=== PATIENT | female | born 1985 | race African-American/Black ===

== ENCOUNTER 2016-04-27 19:53 | Inpatient (IN) | payer BC ==
[~2016-04-27] VITALS: Ht 175.3 cm; Wt 131.5 kg
--- NOTE | ~2016-04-27 | S ---
[facility] [place] [address] SURGICAL PATH RPT PROCEDURE Name: JOSE VILCHIS Y Room #: 401-I [facility] IN M.R.#: [id number] Admission: 04/27/16 Date of : 83 Discharge: 04/30/16 Report #: [id number] Path Case #: [id number] PATHOLOGY REPORT COLLECTION DATE: 04/29/2016 RECEIVED DATE: 04/30/2016 SUBMITTING PHYS: Dr. Apolinar Zhang OTHER PHYS: Dr. Danielle Caballero SPECIMEN(S) RECEIVED: A.Gallbladder * * * * * * * * * * * * FINAL DIAGNOSIS: "Gallbladder", cholecystectomy: - Acute and chronic cholecystitis. - Cholelithiasis. - Lymph node with hyperplasia. (CLW:tracey; d/t: 05/01/2016) PATHOLOGIST: Savanna Caldera M.D. REPORT ELECTRONICALLY SIGNED BY: Savanna Caldera M.D. DATE/TIME: 05/01/2016 17:16 * * * * * * * * * * * * GROSS PATHOLOGY: Received in formalin labeled "Jose Vilchis and gallbladder," is a 10.4 x 3.3 x 1.3 cm, previously opened gallbladder with green-wilkins and wrinkled serosal surfaces. The gallbladder was previously opened to reveal light green and granular mucosa and an average wall thickness of 0.2 cm. Calculi are present and no masses are noted grossly. A 0.8 cm in greatest dimension pink-wilkins lymph node is present near the cystic duct. Director Zone sections from the body and fundus are submitted along with the proximal margin in cassette A1. (TTL; 04/30/2016) CLINICAL HISTORY: Acute cholecystitis and cholelithiasis INITIAL CPT CODE(S): A; 45849 Professional services performed by [facility] at [facility] [address] , [place] [address] [facility] [address] [place] [address] SURGICAL PATH RPT PROCEDURE Name: JOSE VILCHIS Gilbert Room #: 401-I [facility] IN M.R.#: [id number] Admission: 04/27/16 Date of : 83 Discharge: 04/30/16 Report #: [id number] Path Case #: [id number] Technical services performed by [facility] at [address] [place] [address], [place] [address]. [place] [address] PHONE: [phone] DIRECTOR: Yoan Prabhakar M.D. * * * END OF REPORT * * *
--- NOTE | ~2016-04-27 | H ---
[facility] [place] [address] [address] [place] [address] HISTORY AND PHYSICAL Name: JOSE VILCHIS Room #: 401-I ADM IN [facility].#: [id number] Admission: 04/27/16 Attend Phys: Danielle Caballero MD Discharge: Date of : 83 Report #: [id number] THIS REPORT FOR: //name// CC: FAM physician/PCP Danielle Caballero DATE OF SERVICE: 04/27/2016 ATTENDING PHYSICIAN: Danielle Caballero MD PRIMARY CARE PHYSICIAN: ____ at [place]. CHIEF COMPLAINT: Right upper abdominal pain and chest pain, nausea, vomiting. HISTORY OF PRESENT ILLNESS: The patient is a 30-year-old female who states she started having some right upper quadrant abdominal pain 2 nights ____. She woke up the next morning and started having nausea and vomiting, she vomited throughout most of the day. She denies seeing any blood in her emesis. She thinks she was having fevers because she was having chills and sweats. The pain does radiate up into the part of her chest. It is not necessarily worse with deep breathing. She has had a recent cough and sinus congestion and diagnosed with a sinusitis infection by her PCP who started her Bactrim about 2 days ago. She was concerned that maybe she was reacting to her antibiotic, therefore, she came into the ER to be evaluated. She is noted to have significant cholelithiasis. She has received some pain and nausea medication and her symptoms are controlled at this time. PAST MEDICAL HISTORY: GERD, asthma. PAST SURGICAL HISTORY: D and C. ALLERGIES: CIPRO causes a rash, NEXIUM caused vomiting. HOME MEDICATIONS: Albuterol inhaler p.r.n., ibuprofen p.r.n., [place] 5/325 one q. 4 h. p.r.n., Symbicort 80 one puff b.i.d., Nasonex 2 sprays daily, Zofran p.r.n., and Prilosec 40 mg daily. SOCIAL HISTORY: The patient lives alone. She drinks alcohol very rarely. Denies any drug use. She is an ex-smoker, having quit about 6 months ago after smoking for about 10 years. FAMILY HISTORY: Both her parents are alive and health, her sister did not of CHF. REVIEW OF SYSTEMS: Twelve point review of systems as reviewed with the patient, otherwise negative unless stated in the HPI. [address] [address] HISTORY AND PHYSICAL Name: JOSE VILCHIS Room #: 401-I [facility] IN [facility]#: [id number] Admission: 04/27/16 Attend Phys: Danielle Caballero MD Discharge: Date of : 83 Report #: [id number] PHYSICAL EXAMINATION: GENERAL: The patient is an alert, obese female in no acute distress. VITAL SIGNS: Temperature is 36.8, heart rate 77, respirations 18, blood pressure is 161/121, oxygen 100% on room air. HEENT: PERRLA. Sclerae is nonicteric. Oral mucosa is pink and moist. NECK: Supple, no JVD noted. CARDIOVASCULAR: Normal S1, S2. No murmurs, rubs or gallops. RESPIRATORY: Breath sounds are clear bilaterally. No wheezing or rhonchi. Breathing is nonlabored. ABDOMEN: Obese, but soft. She does have significant tenderness in the right upper quadrant to palpation with positive Hurd sign. Bowel sounds are positive. VASCULAR: No edema noted. Pedal pulses are 2+. NEUROLOGIC: The patient is alert and oriented x 3. Speech is clear. She is moving all extremities equally. No focal neuro deficits noted. LABORATORY DATA AND DIAGNOSTICS: WBC is 17.5, hemoglobin 13.2, platelets 285. Sodium 139, potassium 3.5, BUN 11, creatinine 1.0. Glucose is 92. LFTs are within normal limits. Troponins negative. BNP 137, lipase 280. test is negative. Abdominal x-ray showed a nonspecific bowel gas pattern. Chest x-ray showed no acute process. Ultrasound of the abdomen showed cholelithiasis, the gallbladder was filled with stones and there was a scvw-fidj-ymbzep sign, there was no bile duct dilatation. ASSESSMENT AND PLAN: 1. Acute cholecystitis. She will likely need her gallbladder removed. Surgery has consulted. We will keep her n.p.o., continue with pain and nausea control. Continue antibiotics. 2. Asthma. This is stable, add breathing treatments p.r.n. No signs of acute exacerbation. 3. Hypertension. She is not on any current medications. This may have been pain induced. Her blood pressure is now down to 140/85. We will continue to follow. 4. Deep venous thrombosis prophylaxis, placed sequential compression devices. 5. Obesity. We will continue to follow the patient closely throughout the hospitalization and make changes based on clinical status. <ELECTRONICALLY SIGNED> By: JUSTIN Jasso 04/29/16 0553 0541 0616 JUSTIN Jasso /nt
--- NOTE | ~2016-04-27 | O ---
[facility] [place] [address] OPERATIVE REPORT Name: JOSE VILCHIS Room #: 401-I [facility] IN [facility].#: [id number] Admission: 04/27/16 Attend Phys: Danielle Caballero MD Discharge: 04/30/16 Date of : 83 Report #: [id number] THIS REPORT FOR: //name// CC: JANETTE physician/PCP Danielle Caballero DATE OF SERVICE: 04/29/2016 PREOPERATIVE DIAGNOSIS: Acute cholecystitis with cholelithiasis. POSTOPERATIVE DIAGNOSIS: Acute cholecystitis with cholelithiasis. OPERATIVE PROCEDURE: Laparoscopic cholecystectomy with operative cholangiogram. SURGEON: Apolinar Zhang M.D. DISCOVERY GUIDE: BENJA Vaz. INDICATIONS: A 30-year-old lady with 48 hours of abdominal pain, localized to right upper quadrant associated with an ultrasound positive for cholelithiasis. Liver function test within normal limits. DESCRIPTION OF PROCEDURE: The patient had been on antibiotic therapy. She was brought to the operating room suite and had satisfactory induction of general endotracheal anesthesia. The patient's entire abdomen was prepped and draped in the usual sterile procedure with DuraPrep solution. Draping was completed, an appropriate timeout was then performed. 0.5% plain Naropin was utilized at all trocar sites. A vertical supraumbilical incision was carried down to the fascia. The fascia grasped and small incision made. The 5 mm OptiView port was utilized to gain access to the peritoneal cavity under direct vision. Pneumoperitoneum was established. An upper midline 5 mm trocar port was then placed under direct vision. After this, the camera was changed to the superior mid epigastric position, and the 12 mm trocar port with the balloon was also inserted under direct vision, the balloon was inflated. A 10/30 camera was then utilized, and additional two 5 mm trocar ports were placed laterally. The gallbladder was grasped. There were adhesions to the inferior aspect of the gallbladder. These were taken down with sharp dissection, blunt dissection, as well as the Sonicision. The gallbladder was somewhat edematous. It was grasped and retracted cephalad, laterally. A cystic duct triangle was clearly delineated, and photograph was taken of the cystic duct triangle. The cystic duct was milked in a retrograde manner. A clip was placed over the gallbladder. A cystotomy was performed. A taut catheter was introduced and clipped in place. An intraoperative cholangiogram demonstrated free flow of contrast into the duodenum. No filling defects were noted. The taut catheter was then removed. The cystic duct was triply ligated and divided with the Sonicision. The cystic artery was identified, doubly clipped proximally, and divided with [facility] [address] [place] [address] OPERATIVE REPORT Name: JOSE VILCHIS Room #: 401-I [facility] IN ..#: [id number] Admission: 04/27/16 Attend Phys: Danielle Caballero MD Discharge: 04/30/16 Date of : 83 Report #: [id number] Sonicision. The gallbladder was dissected from the fossa without difficulty. It was placed into an Endobag and removed from the peritoneal cavity. It was opened on a back shelf revealing multiple mixed stones. Attention was turned back to peritoneal cavity, copious irrigation and evacuation of all irrigating contents was accomplished. Jorge was placed in the gallbladder fossa. No drains were placed. An 0 PDS suture was placed under direct vision in a gasjcd-jh-owmmj fashion at the umbilical port site. An additional single suture of 0 PDS was also placed. A final inspection was completed. Hemostasis was complete. No other intra-abdominal pathology was noted. The 5 mm trocars were then removed under direct vision. The pneumoperitoneum was deflated. The 0 PDS sutures were ligated in place at the level of the supraumbilical port site. Skin margins were approximated with subcuticular 4-0 Monocryl. The estimated blood loss was less than 25 mL. The patient tolerated the procedure well, and she returned to the recovery room in stable and satisfactory condition. Dermabond was utilized to further secure the port sites. <ELECTRONICALLY SIGNED> By: Apolinar Zhang MD, FACS 05/04/16 1548 1447 1731 Apolinar Zhang MD, FACS /nt
--- NOTE | ~2016-04-27 | HC ---
[facility] [place] [address] CONSULTATION Name: JOSE VILCHIS Room #: 401-I [facility] IN ..#: [id number] Admission: 04/27/16 Attend Phys: Danielle Caballero MD Discharge: 04/30/16 Date of : 83 Report #: [id number] THIS REPORT FOR: //name// CC: JANETTE physician/PCP Danielle Caballero DATE OF SERVICE: 04/28/2016 HISTORY OF PRESENT ILLNESS: I have been asked to evaluate this 30-year-old lady who has presented to the Emergency Room with chief complaint of right upper quadrant pain. The right upper quadrant pain has begun approximately 2 nights ago. The patient's pain continued throughout the nighttime. She started having nausea and vomiting. She vomited throughout most of the day, was unable to go to work on Saturday. She has presented to the Emergency Department and was found to have cholelithiasis and gallbladder disease consistent with possible early cholecystitis. Her primary care physician started her on some Bactrim 2 days ago for sinusitis, but she is noted to have worsening right upper quadrant pain. PAST MEDICAL HISTORY: Consistent with GERD and asthma. PAST SURGICAL HISTORY: D and C only. ALLERGIES: CIPRO, NEXIUM. MEDICATIONS: Albuterol, Zearing, Symbicort, Nasonex, Prilosec. 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 Drinks alcohol only socially. Denies utilizing drugs. She has quit smoking approximately 6 months ago, has a 54-jhty-thdy history of cigarette smoking. FAMILY HISTORY: Parents are living. REVIEW OF SYSTEMS: A 10-point review of systems essentially noncontributory except for a recent onset of gastrointestinal disease. PHYSICAL EXAMINATION: GENERAL: Demonstrates a patient who is alert, cooperative. VITAL SIGNS: Afebrile, vital signs within normal limits. Generally, she is an obese, large lady, approximately 300 pounds. HEENT: Pupils are equal, round, react to light. Scleral icterus is not noted. NECK: Supple, no adenopathy. CARDIOVASCULAR: Regular rate and rhythm. LUNGS: Clear at the bases bilaterally. ABDOMEN: Obese, mild tenderness in the right upper quadrant. No guarding or rebound. No other masses are present. [address] [address] CONSULTATION Name: JOSE VILCHIS Room #: 401-I [facility] IN [facility].#: [id number] Admission: 04/27/16 Attend Phys: Danielle Caballero MD Discharge: 04/30/16 Date of : 83 Report #: [id number] NEUROLOGIC: She is oriented x 3 with bilateral motor symmetry. LABORATORY DATA: Demonstrates white blood cell count 17,000, hemoglobin 13.2. Liver function tests are within normal limits. Lipase is within normal. test is negative. Ultrasound demonstrates cholelithiasis filled with stones. I would recommend proceeding with IV antibiotics. PLAN: Laparoscopic cholecystectomy with cholangiogram in the a.m. Thank you for allowing us to participate in her care. <ELECTRONICALLY SIGNED> By: Apolinar Zhang MD, FACS 05/07/16 0941 1602 1839 Apolinar Zhang MD, FACS /nt
--- NOTE | ~2016-04-27 | EKG ---
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
[~2016-04-27 19:53] MED LIST: ACCUNEB SO1.25 MG/1; ADVAIR 250-501 EACH IH; ALBUTEROL2.5 MG/0.5 INH; AUGMENTIN 875875 M1 PO; AZITHROMYCIN 2250 MG PO; BACTRIM DS TAB1 EACH PO; CHERACOL COUGH120 ML PO; DIFLUCAN150 MG PO; DIFLUCAN200 MG PO; FLAGYL500 MG PO; FLONASE 0.05%50 MCG NS; IBUPROFEN 600600 M1 PO; LORATIDINE 10 M10 M1 PO; LORTAB 5 MG/5001 TAB PO; MEDROLDOSEPACK PO; NASONEX17 GM NASAL; NEXIUM40 MG PO; ONDANSETRON HCL4 M2 PO; PHENERGAN 25 MG25 M1 PO; POTASSIUM20 PO; PREDNISONE 20 M20 MG PO; PRILOSEC40 MG PO; PROAIR HFA8.5 GM IH; SYMBICORT80 MCG/4.1 INH; VENTOLIN HFA 1818 GM INH; ZANTAC 150MG T150 M1 PO; ZOFRAN4 MG PO; ZPAK PO
[2016-04-27] MEDS ORDERED: ALBUTEROL2.5 MG/3 M INH (20:26)
[2016-04-27 21:00] LABS: ABSOLUTE NEUTROPHILS 12.5 thou/uL (1.4-8.2); BASOPHILS 0.9 % (0.0-2.0); EOSINOPHILS 0.6 % (0.0-3.0); HEMATOCRIT 39.8 % (37.0-47.0); HEMOGLOBIN 13.2 gm/dL (12.0-15.0); MCH 29.8 pg (26.0-34.0); MCHC 33.2 g/dL (28.0-37.0); MCV 89.8 fL (80.0-100.0); MONOCYTES 4.8 % (1.0-8.0); PLATELET COUNT 285 thou/uL (150-400); POLYS 71.7 % (36.0-66.0); RBC 4.44 mil/uL (4.20-5.00); RDW 13.9 % (10.5-14.5); WBC 17.5 thou/uL (4.0-11.0)
[2016-04-27 21:03] LABS: MANUAL DIFF NO
[2016-04-27 21:04] LABS: ANION GAP 11 mmol/L (7-16); BUN 11 mg/dL (7-18); CALCIUM 9.1 mg/dL (8.5-10.1); CHLORIDE 104 mmol/L (98-107); CO2 24 mmol/L (21-32); GLUCOSE 92 mg/dL (70-99); POTASSIUM 3.5 mmol/L (3.5-5.1); SODIUM 139 mmol/L (136-145)
[2016-04-27 21:17] LABS: ALKALINE PHOSPHATASE 55 U/L (46-116); NT-PRO BRAIN NAT PEPTIDE 137 pg/mL (<300); SGOT 19 U/L (15-37); SGPT 22 U/L (30-65); TOTAL BILIRUBIN 0.2 mg/dL (<0.1-1.0); TOTAL PROTEIN 7.9 g/dL (6.4-8.2); TROPONIN-I < 0.04 ng/mL (<0.04-0.07)
[2016-04-27] MEDS ORDERED: ZOFRAN ODT8 MG PO (21:57)
[2016-04-27] MEDS ORDERED: NORCO 5-325 TA1 EACH PO (21:57)
[2016-04-27 22:31] LABS: URINE BILIRUBIN NEGATIVE (Negative); URINE BLOOD TRACE (Negative); URINE COLOR YELLOW; URINE GLUCOSE-RANDOM* NEGATIVE (Negative); URINE KETONES NEGATIVE (Negative); URINE LEUKOCYTES-REFLEX 1+ (Negative); URINE PROTEIN (DIPSTICK) NEGATIVE (Negative); URINE UROBILINOGEN 0.2 E.U./dl (0.2-1.0)
[2016-04-27 22:38] LABS: CASTS None Seen /LPF (None Seen); CRYSTALS None Seen /LPF (None Seen); SQUAMOUS 4-10 Moderate /LPF (0-3)
[2016-04-27 22:39] LABS: URINE RBC 0-2 Rare /HPF (0-2); URINE WBC-REFLEX 0-5 Rare /HPF (0-5)
[2016-04-28 05:21] LABS: HEMATOCRIT 37.6 % (37.0-47.0); HEMOGLOBIN 12.2 gm/dL (12.0-15.0); MCH 29.1 pg (26.0-34.0); MCHC 32.4 g/dL (28.0-37.0); MCV 89.9 fL (80.0-100.0); RBC 4.18 mil/uL (4.20-5.00); RDW 14.3 % (10.5-14.5); WBC 11.2 thou/uL (4.0-11.0)
[2016-04-29 04:46] LABS: ABSOLUTE NEUTROPHILS 7.2 thou/uL (1.4-8.2); BASOPHILS 0.3 % (0.0-2.0); EOSINOPHILS 1.2 % (0.0-3.0); HEMATOCRIT 36.6 % (37.0-47.0); LYMPHOCYTES 26.7 % (24.0-44.0); MCH 29.9 pg (26.0-34.0); MCHC 32.9 g/dL (28.0-37.0); MONOCYTES 6.3 % (1.0-8.0); PLATELET COUNT 229 thou/uL (150-400); POLYS 65.5 % (36.0-66.0); RBC 4.03 mil/uL (4.20-5.00); RDW 13.8 % (10.5-14.5)
[2016-04-29 04:56] LABS: MANUAL DIFF NO
[2016-04-29 05:21] LABS: CALCIUM 8.3 mg/dL (8.5-10.1); POTASSIUM 3.7 mmol/L (3.5-5.1)
[2016-04-29 05:26] LABS: ALBUMIN 3.1 g/dL (3.4-5.0); DIRECT BILIRUBIN 0.1 mg/dL (<0.1-0.3); TOTAL BILIRUBIN 0.2 mg/dL (<0.1-1.0); TOTAL PROTEIN 6.3 g/dL (6.4-8.2)
== END 2016-04-30 14:00 | disposition home or self-care (01) | DRG 418 ==
LOC: ER 19:53 → 4N 22:18 → EROBS 22:18 → 4N 23:02
PROVIDERS: Emergency Medicine; Family Medicine; Surgery
DX: K80.00 Calculus of gallbladder with acute cholecystitis without obstruction (principal); E44.1 Mild protein-calorie malnutrition; Z68.41 Body mass index [BMI] 40.0-44.9, adult; J45.909 Unspecified asthma, uncomplicated; K21.9 Gastro-esophageal reflux disease without esophagitis; Z60.2 Problems related to living alone; I10 Essential (primary) hypertension; E66.9 Obesity, unspecified; G89.29 Other chronic pain; D72.829 Elevated white blood cell count, unspecified; A59.9 Trichomoniasis, unspecified; J06.9 Acute upper respiratory infection, unspecified; Z88.1 Allergy status to other antibiotic agents; Z88.8 Allergy status to other drugs, medicaments and biological substances; Z87.891 Personal history of nicotine dependence; Z79.899 Other long term (current) drug therapy
CPT/HCPCS: 10091; 50010; 50101; 50249; 50411; 50555; 50962; 51489; 51975; 52265; 53307; 53314; 54022; 54118; 55245; 55317; 56462; 56525; 56526; 62110; 62900; 70005

== ENCOUNTER 2016-12-21 19:27 | Emergency (ER) | payer BC ==
[~2016-12-21] VITALS: Ht 175.3 cm; Wt 136.1 kg
[~2016-12-21 19:27] MED LIST changes: +ALBUTEROL2.5 MG/3 M INH; +BENTYL 20 MG TA20 M1 PO; +NORCO 5-325 TA1 EACH PO; +ZOFRAN ODT8 MG PO
[2016-12-21] MEDS ORDERED: VENTOLIN HFA 1818 GM INH (20:32)
[2016-12-21] MEDS ORDERED: MUCINEX D TABL1 EACH PO (20:32)
[2016-12-21] MEDS ORDERED: PREDNISONE 20 M20 MG PO (20:32)
[2016-12-21] MEDS ORDERED: TESSALON PERLE100 MG PO (20:32)
== END 2016-12-21 21:15 | disposition home or self-care (01) ==
LOC: ER 19:27
DX: J45.909 Unspecified asthma, uncomplicated (principal); R19.7 Diarrhea, unspecified; J06.9 Acute upper respiratory infection, unspecified; K21.9 Gastro-esophageal reflux disease without esophagitis; F17.210 Nicotine dependence, cigarettes, uncomplicated; F10.99 Alcohol use, unspecified with unspecified alcohol-induced disorder; Z88.1 Allergy status to other antibiotic agents

== ENCOUNTER 2017-08-09 19:12 | Emergency (ER) | payer BC ==
[~2017-08-09] VITALS: Ht 175.3 cm; Wt 136.1 kg
[~2017-08-09 19:12] MED LIST changes: +HYDROCODONE-AP1 EAC6 PO; +MUCINEX D TABL1 EACH PO; +TESSALON PERLE100 MG PO
[2017-08-09] MEDS ORDERED: MUCINEX D ER 11 EACH PO (19:54)
[2017-08-09] MEDS ORDERED: PREDNISONE50 MG PO (19:54)
== END 2017-08-09 20:42 | disposition home or self-care (01) ==
LOC: ER 19:12
DX: R51 Headache (principal); J45.901 Unspecified asthma with (acute) exacerbation; K21.9 Gastro-esophageal reflux disease without esophagitis; Z87.891 Personal history of nicotine dependence; Z88.1 Allergy status to other antibiotic agents

== ENCOUNTER 2017-09-11 00:06 | Inpatient (IN) | payer BC ==
[2017-09-11] VITALS (7 sets, daily range): BP systolic 117–182; BP diastolic 61–119
[~2017-09-11] VITALS: Ht 175.3 cm; Wt 145.5 kg
[~2017-09-11 00:06] MED LIST changes: +MUCINEX D ER 11 EACH PO; +PREDNISONE50 MG PO
[2017-09-11 00:58] LABS: CALCIUM 8.9 mg/dL (8.5-10.1); POTASSIUM 3.3 mmol/L (3.5-5.1)
[2017-09-11 01:04] LABS: ABSOLUTE NEUTROPHILS 15.8 thou/uL (1.4-8.2); ALBUMIN 3.9 g/dL (3.4-5.0); BASOPHILS 0.5 % (0.0-2.0); HEMATOCRIT 38.3 % (37.0-47.0); HEMOGLOBIN 12.8 gm/dL (12.0-15.0); LYMPHOCYTES 10.7 % (24.0-44.0); MCH 30.2 pg (26.0-34.0); MCHC 33.4 g/dL (28.0-37.0); MCV 90.3 fL (80.0-100.0); MONOCYTES 2.6 % (1.0-8.0); PLATELET COUNT 288 thou/uL (150-400); POLYS 86.2 % (36.0-66.0); RBC 4.24 mil/uL (4.20-5.00); RDW 14.2 % (10.5-14.5); TOTAL BILIRUBIN 0.2 mg/dL (<0.1-1.0); TOTAL PROTEIN 7.9 g/dL (6.4-8.2); WBC 18.3 thou/uL (4.0-11.0)
[2017-09-11] MEDS ORDERED: CLARITIN10 MG PO (01:29)
[2017-09-12 03:49] VITALS: BP 113/66
[2017-09-12 03:55] LABS: CALCIUM 8.6 mg/dL (8.5-10.1); CREATININE 0.9 mg/dL (0.6-1.0); POTASSIUM 3.7 mmol/L (3.5-5.1)
[2017-09-12 05:15] LABS: HEMATOCRIT 35.4 % (37.0-47.0); HEMOGLOBIN 11.8 gm/dL (12.0-15.0); MCH 30.2 pg (26.0-34.0); MCHC 33.2 g/dL (28.0-37.0); MCV 90.9 fL (80.0-100.0); RBC 3.9 mil/uL (4.20-5.00); RDW 14.2 % (10.5-14.5); WBC 15.5 thou/uL (4.0-11.0)
[2017-09-12 07:39] VITALS: BP 142/89
[2017-09-12] MEDS ORDERED: DOXYCYCLINE 10100 MG PO (13:25)
[2017-09-12] MEDS ORDERED: TESSALON PERLE100 MG PO (13:25)
[2017-09-12] MEDS ORDERED: PROBIOTIC1 EAC1 PO (13:25)
[2017-09-12] MEDS ORDERED: PREDNISONE 10 M10 M1 PO (13:25)
[2017-09-12 14:27] VITALS: BP 142/89
[2017-09-13 22:06] LABS: ADENOVIRUS Negative (Negative); INFLUENZA A Negative (Negative); INFLUENZA B Negative (Negative); METAPNEUMOVIRUS Negative (Negative); PARAINFLUENZA 1 Negative (Negative); PARAINFLUENZA 2 Negative (Negative); PARAINFLUENZA 3 Negative (Negative); RHINOVIRUS Positive (Negative); RSV A Negative (Negative); RSV B Negative (Negative)
== END 2017-09-12 15:45 | disposition home or self-care (01) | DRG 871 ==
LOC: ER 00:06 → 2N 01:56 → EROBS 01:56 → 2N 02:36 → ENTRNSPT 09-12 14:38 → EDTRNSPTSTS 09-12 14:52 → 2N 09-12 15:45
PROVIDERS: Emergency Medicine; Nurse Practitioner Acute Care
DX: A41.9 Sepsis, unspecified organism (principal); J18.9 Pneumonia, unspecified organism; J96.20 Acute and chronic respiratory failure, unspecified whether with hypoxia or hypercapnia; J45.901 Unspecified asthma with (acute) exacerbation; K21.9 Gastro-esophageal reflux disease without esophagitis; D72.829 Elevated white blood cell count, unspecified; E87.6 Hypokalemia; Z88.1 Allergy status to other antibiotic agents; Z87.891 Personal history of nicotine dependence; Z82.49 Family history of ischemic heart disease and other diseases of the circulatory system; Z79.899 Other long term (current) drug therapy
CPT/HCPCS: 10081

== ENCOUNTER 2018-06-21 12:15 | Emergency (ER) | payer BC ==
[~2018-06-21] VITALS: Ht 175.3 cm; Wt 136.1 kg
[~2018-06-21 12:15] MED LIST changes: +CLARITIN10 MG PO; +DOXYCYCLINE 10100 MG PO; +PREDNISONE 10 M10 M1 PO; +PROBIOTIC1 EAC1 PO
[2018-06-21] MEDS ORDERED: PREDNISONE 20 M20 MG PO (13:42)
[2018-06-21] MEDS ORDERED: ACCUNEB SO1.25 MG/1 INH (13:42)
[2018-06-21 13:50] VITALS: BP 152/91
== END 2018-06-21 13:52 | disposition home or self-care (01) ==
LOC: ER 12:15
DX: J45.901 Unspecified asthma with (acute) exacerbation (principal); K21.9 Gastro-esophageal reflux disease without esophagitis; Z90.49 Acquired absence of other specified parts of digestive tract; Z88.1 Allergy status to other antibiotic agents

== ENCOUNTER 2018-06-29 13:37 | Emergency (ER) | payer BC ==
[~2018-06-29] VITALS: Ht 175.3 cm; Wt 158.8 kg
[~2018-06-29 13:37] MED LIST changes: +ACCUNEB SO1.25 MG/1 INH
[2018-06-29] MEDS ORDERED: TESSALON PERLE100 MG PO (15:36)
[2018-06-29 16:35] VITALS: BP 148/100
== END 2018-06-29 16:40 | disposition home or self-care (01) ==
LOC: ER 13:37
DX: J45.901 Unspecified asthma with (acute) exacerbation (principal); K21.9 Gastro-esophageal reflux disease without esophagitis; Z90.49 Acquired absence of other specified parts of digestive tract; Z88.1 Allergy status to other antibiotic agents

== ENCOUNTER 2018-08-19 02:58 | Emergency (ER) | payer BC ==
[~2018-08-19] VITALS: Ht 175.3 cm; Wt 90.7 kg
[2018-08-19] MEDS ORDERED: FLONASE 0.05%50 MCG NASAL (03:05)
[2018-08-19] MEDS ORDERED: PREDNISONE 1 MG1 M1 PO (05:09)
[2018-08-19] MEDS ORDERED: TUSSIONEX PENN115 ML PO (05:09)
[2018-08-19] MEDS ORDERED: IPRATROPIU0.2 MG/1 M INH (05:09)
[2018-08-19 05:59] VITALS: BP 152/100
--- NOTE | 2018-08-19 07:44 | EKG ---
[address] [address] ELECTROCARDIOGRAM REPORT Name: JOSE VILCHIS Room #: [facility]#: [id number] ������������������ Admission: 08/19/18 ������������������ Attend Phys: Discharge: 08/19/18 ������������������ Date of : 83 Report #: [id number] ����������������������������������������������������������������� [id number] THIS REPORT FOR: //name// [facility] ED Test Date: 2018-08-19 Test Time: 03:09:45 Pat Name: JOSE VILCHIS Department: Room: Gender: F Electrical Appliance Preparer: KENNETH : 1985 Requested By: Tyler Kruse Order Number: [id number] MD: Imtiaz Adams Measurements Intervals [place] Rate: 89 P: 70 [place]: 154 QRS: 14 QRSD: 99 T: 18 QT: 374 QTc: 456 Interpretive Statements Sinus rhythm Atrial premature complex Compared to ECG 04/27/2016 20:13:03 Atrial premature complex(es) now present Electronically Signed On 08-19-2018 7:43:49 CDT by Imtiaz Adams [email or web address] ��������������������������������������������� <ELECTRONICALLY SIGNED> ���������������������������������������� By: Imtiaz Adams MD, [facility] ��������������������������������������������� 08/19/18 0743 D: 06/308 8 Imtiaz Adams MD, FACC /EPI
== END 2018-08-19 06:03 | disposition home or self-care (01) ==
LOC: ER 02:58
DX: J45.901 Unspecified asthma with (acute) exacerbation (principal); K21.9 Gastro-esophageal reflux disease without esophagitis; Z88.1 Allergy status to other antibiotic agents; Z90.49 Acquired absence of other specified parts of digestive tract

== ENCOUNTER 2018-09-09 20:18 | Emergency (ER) | payer BC ==
[~2018-09-09] VITALS: Ht 175.3 cm; Wt 149.7 kg
[~2018-09-09 20:18] MED LIST changes: +FLONASE 0.05%50 MCG NASAL; +IPRATROPIU0.2 MG/1 M INH; +PREDNISONE 1 MG1 M1 PO; +TUSSIONEX PENN115 ML PO
[2018-09-09 20:46] LABS: URINE BILIRUBIN NEGATIVE (Negative); URINE BLOOD 3+ (Negative); URINE CLARITY CLEAR; URINE COLOR YELLOW; URINE GLUCOSE-RANDOM* NEGATIVE (Negative); URINE KETONES NEGATIVE (Negative); URINE LEUKOCYTES-REFLEX NEGATIVE (Negative); URINE NITRITE-REFLEX NEGATIVE (Negative); URINE PROTEIN (DIPSTICK) NEGATIVE (Negative); URINE UROBILINOGEN 0.2 E.U./dl (0.2-1.0)
[2018-09-09 20:54] LABS: CASTS None Seen /LPF (None Seen); CRYSTALS None Seen /LPF (None Seen); SQUAMOUS 0-3 Few /LPF (0-3); URINE RBC 3-10 Few /HPF (0-2); URINE WBC-REFLEX None Seen /HPF (0-5)
[2018-09-09 21:00] LABS: ABSOLUTE NEUTROPHILS 7.4 thou/uL (1.4-8.2); BASOPHILS 1.5 % (0.0-2.0); EOSINOPHILS 2.2 % (0.0-3.0); HEMATOCRIT 35.6 % (37.0-47.0); LYMPHOCYTES 25.1 % (24.0-44.0); MCH 30.6 pg (26.0-34.0); MCHC 33.7 g/dL (28.0-37.0); MCV 90.8 fL (80.0-100.0); MONOCYTES 5.6 % (1.0-8.0); PLATELET COUNT 289 thou/uL (150-400); POLYS 65.6 % (36.0-66.0); RBC 3.92 mil/uL (4.20-5.00); RDW 14.4 % (10.5-14.5); WBC 11.3 thou/uL (4.0-11.0)
[2018-09-09 21:11] LABS: CALCIUM 8.9 mg/dL (8.5-10.1); CREATININE 0.7 mg/dL (0.6-1.0); POTASSIUM 3.3 mmol/L (3.5-5.1)
[2018-09-09 21:17] LABS: ALBUMIN 3.4 g/dL (3.4-5.0); TOTAL BILIRUBIN 0.2 mg/dL (<0.1-1.0)
[2018-09-09] MEDS ORDERED: KEFLEX500 M1 PO (22:08)
[2018-09-09 22:13] VITALS: BP 161/110
== END 2018-09-09 22:14 | disposition home or self-care (01) ==
LOC: ER 20:18
PROVIDERS: Nurse Practitioner Family
DX: O20.0 Threatened abortion (principal); J45.909 Unspecified asthma, uncomplicated; K21.9 Gastro-esophageal reflux disease without esophagitis; Z3A.01 Less than 8 weeks gestation of pregnancy; Z88.1 Allergy status to other antibiotic agents; Z90.49 Acquired absence of other specified parts of digestive tract

== ENCOUNTER 2018-10-29 13:18 | Emergency (ER) | payer BC ==
[~2018-10-29] VITALS: Ht 175.3 cm; Wt 140.6 kg
[~2018-10-29 13:18] MED LIST changes: +KEFLEX500 M1 PO
[2018-10-29 13:46] LABS: URINE BILIRUBIN NEGATIVE (Negative); URINE BLOOD 1+ (Negative); URINE CLARITY CLEAR; URINE COLOR YELLOW; URINE GLUCOSE-RANDOM* NEGATIVE (Negative); URINE KETONES NEGATIVE (Negative); URINE LEUKOCYTES-REFLEX TRACE (Negative); URINE NITRITE-REFLEX NEGATIVE (Negative); URINE PROTEIN (DIPSTICK) NEGATIVE (Negative); URINE SPECIFIC GRAVITY 1.015 (1.005-1.035); URINE UROBILINOGEN 0.2 E.U./dl (0.2-1.0)
[2018-10-29 13:57] LABS: CASTS None Seen /LPF (None Seen); SQUAMOUS >10 Many /LPF (0-3)
[2018-10-29 13:58] LABS: BACTERIA-REFLEX None Seen /HPF (None Seen); CRYSTALS None Seen /LPF (None Seen); URINE RBC 0-2 Rare /HPF (0-2); URINE WBC-REFLEX 0-5 Rare /HPF (0-5)
[2018-10-29 14:04] LABS: EOSINOPHILS 3.2 % (0.0-3.0); HEMATOCRIT 40.8 % (37.0-47.0); HEMOGLOBIN 13.7 gm/dL (12.0-15.0); LYMPHOCYTES 22.3 % (24.0-44.0); MCH 30.4 pg (26.0-34.0); MCHC 33.7 g/dL (28.0-37.0); MCV 90.2 fL (80.0-100.0); POLYS 68.5 % (36.0-66.0); RBC 4.53 mil/uL (4.20-5.00); RDW 13.6 % (10.5-14.5); WBC 15.7 thou/uL (4.0-11.0)
[2018-10-29] MEDS ORDERED: ZANAFLEX4 MG PO (14:27)
[2018-10-29] MEDS ORDERED: ALPRAZOLAM 0.50.5 M1 PO (14:27)
[2018-10-29] MEDS ORDERED: LEXAPRO 10 MG T10 M1 PO (14:28)
[2018-10-29 14:42] LABS: PLATELET COUNT 301 thou/uL (150-400)
[2018-10-29 15:31] LABS: ALBUMIN 3.7 g/dL (3.4-5.0); CALCIUM 8.8 mg/dL (8.5-10.1); CREATININE 0.7 mg/dL (0.6-1.0); TOTAL BILIRUBIN 0.4 mg/dL (<0.1-1.0); TOTAL PROTEIN 7.3 g/dL (6.4-8.2)
[2018-10-29] MEDS ORDERED: PREDNISONE 20 M20 MG PO (16:16)
[2018-10-29] MEDS ORDERED: PROAIR HFA8.5 GM INH (16:16)
[2018-10-29] MEDS ORDERED: TESSALON PERLE100 MG PO (16:17)
[2018-10-29 17:20] VITALS: BP 167/109
== END 2018-10-29 17:20 | disposition home or self-care (01) ==
LOC: ER 13:18
PROVIDERS: Emergency Medicine
DX: J45.901 Unspecified asthma with (acute) exacerbation (principal); B34.9 Viral infection, unspecified; K21.9 Gastro-esophageal reflux disease without esophagitis; Z90.49 Acquired absence of other specified parts of digestive tract; Z88.1 Allergy status to other antibiotic agents

== ENCOUNTER 2019-02-17 10:48 | Emergency (ER) | payer OTHER ==
[~2019-02-17] VITALS: Ht 175.3 cm; Wt 136.1 kg
[~2019-02-17 10:48] MED LIST changes: +ALPRAZOLAM 0.50.5 M1 PO; +LEXAPRO 10 MG T10 M1 PO; +PROAIR HFA8.5 GM INH; +ZANAFLEX4 MG PO
[2019-02-17 11:31] LABS: URINE BILIRUBIN NEGATIVE (Negative); URINE BLOOD TRACE (Negative); URINE CLARITY CLEAR; URINE COLOR YELLOW; URINE GLUCOSE-RANDOM* NEGATIVE (Negative); URINE KETONES NEGATIVE (Negative); URINE LEUKOCYTES-REFLEX NEGATIVE (Negative); URINE NITRITE-REFLEX NEGATIVE (Negative); URINE PROTEIN (DIPSTICK) NEGATIVE (Negative); URINE SPECIFIC GRAVITY 1.015 (1.005-1.035); URINE UROBILINOGEN 0.2 E.U./dl (0.2-1.0)
[2019-02-17] MEDS ORDERED: IBUPROFEN 800800 M1 PO (12:04)
[2019-02-17] MEDS ORDERED: NORFLEX100 MG PO (12:04)
[2019-02-17 12:30] VITALS: BP 99/50
== END 2019-02-17 12:31 | disposition home or self-care (01) ==
LOC: ER 10:48
PROVIDERS: Nurse Practitioner Family
DX: S39.012A Strain of muscle, fascia and tendon of lower back, initial encounter (principal); J45.909 Unspecified asthma, uncomplicated; K21.9 Gastro-esophageal reflux disease without esophagitis; F41.9 Anxiety disorder, unspecified; Z90.49 Acquired absence of other specified parts of digestive tract; Z88.1 Allergy status to other antibiotic agents; W00.0XXA Fall on same level due to ice and snow, initial encounter; Y92.89 Other specified places as the place of occurrence of the external cause; Y93.89 Activity, other specified; Y99.8 Other external cause status

== ENCOUNTER 2019-03-23 09:41 | Emergency (ER) | payer OTHER ==
[~2019-03-23] VITALS: Ht 175.3 cm; Wt 136.1 kg
[~2019-03-23 09:41] MED LIST changes: +IBUPROFEN 800800 M1 PO; +NORFLEX100 MG PO
[2019-03-23] MEDS ORDERED: AUGMENTIN 875-1 EACH PO (10:19)
[2019-03-23 13:28] LABS: ABSOLUTE NEUTROPHILS 11.1 thou/uL (1.4-8.2); BASOPHILS 0.2 % (0.0-2.0); EOSINOPHILS 0.1 % (0.0-3.0); HEMATOCRIT 39.9 % (37.0-47.0); HEMOGLOBIN 12.8 gm/dL (12.0-15.0); LYMPHOCYTES 8.3 % (24.0-44.0); MCH 29.7 pg (26.0-34.0); MCHC 32.2 g/dL (28.0-37.0); MCV 92.3 fL (80.0-100.0); MONOCYTES 3.9 % (1.0-8.0); PLATELET COUNT 265 thou/uL (150-400); POLYS 87.5 % (36.0-66.0); RBC 4.32 mil/uL (4.20-5.00); WBC 12.7 thou/uL (4.0-11.0)
[2019-03-23] MEDS ORDERED: TESSALON PERLE100 MG PO (13:39)
[2019-03-23] MEDS ORDERED: VENTOLIN HFA 1818 GM INH (13:39)
[2019-03-23] MEDS ORDERED: DOXYCYCLINE 10100 MG PO (13:39)
[2019-03-23 13:42] LABS: CALCIUM 9.1 mg/dL (8.5-10.1); CREATININE 0.8 mg/dL (0.6-1.0); POTASSIUM 3.3 mmol/L (3.5-5.1)
[2019-03-23 13:44] VITALS: BP 164/105
[2019-03-23 13:48] LABS: ALBUMIN 3.8 g/dL (3.4-5.0); TOTAL BILIRUBIN 0.9 mg/dL (<0.1-1.0); TOTAL PROTEIN 7.9 g/dL (6.4-8.2)
== END 2019-03-23 13:44 | disposition home or self-care (01) ==
LOC: ER 09:41
PROVIDERS: Physician Assistant
DX: J11.00 Influenza due to unidentified influenza virus with unspecified type of pneumonia (principal); J45.909 Unspecified asthma, uncomplicated; K21.9 Gastro-esophageal reflux disease without esophagitis; Z90.49 Acquired absence of other specified parts of digestive tract; Z88.1 Allergy status to other antibiotic agents; Z88.8 Allergy status to other drugs, medicaments and biological substances

== ENCOUNTER 2019-05-12 12:24 | Emergency (ER) | payer OTHER ==
[~2019-05-12] VITALS: Ht 175.3 cm; Wt 136.1 kg
[~2019-05-12 12:24] MED LIST changes: +AUGMENTIN 875-1 EACH PO
[2019-05-12 13:08] LABS: ABSOLUTE NEUTROPHILS 5.4 thou/uL (1.4-8.2); EOSINOPHILS 3.6 % (0.0-3.0); HEMATOCRIT 38.5 % (37.0-47.0); HEMOGLOBIN 12.9 gm/dL (12.0-15.0); LYMPHOCYTES 27.4 % (24.0-44.0); MCH 30.7 pg (26.0-34.0); MCHC 33.4 g/dL (28.0-37.0); MONOCYTES 4.4 % (1.0-8.0); PLATELET COUNT 272 thou/uL (150-400); POLYS 63.6 % (36.0-66.0); RBC 4.19 mil/uL (4.20-5.00); RDW 14.6 % (10.5-14.5); WBC 8.4 thou/uL (4.0-11.0)
[2019-05-12 13:17] LABS: CALCIUM 8.9 mg/dL (8.5-10.1); CREATININE 0.8 mg/dL (0.6-1.0); POTASSIUM 3.2 mmol/L (3.5-5.1)
[2019-05-12 13:22] LABS: ALBUMIN 3.8 g/dL (3.4-5.0); TOTAL BILIRUBIN 0.4 mg/dL (<0.1-1.0); TOTAL PROTEIN 7.1 g/dL (6.4-8.2)
[2019-05-12] MEDS ORDERED: PREDNISONE 20 M20 M1 PO (13:57)
[2019-05-12] MEDS ORDERED: PATANOL5 ML OPHTHALMIC (13:57)
[2019-05-12 15:26] VITALS: BP 151/86
== END 2019-05-12 15:26 | disposition home or self-care (01) ==
LOC: ER 12:24
PROVIDERS: Physician Assistant
DX: J45.901 Unspecified asthma with (acute) exacerbation (principal); H10.10 Acute atopic conjunctivitis, unspecified eye; J30.9 Allergic rhinitis, unspecified; H92.01 Otalgia, right ear; K21.9 Gastro-esophageal reflux disease without esophagitis; Z79.899 Other long term (current) drug therapy

== ENCOUNTER 2019-09-18 08:01 | Emergency (ER) | payer OTHER ==
[~2019-09-18] VITALS: Ht 175.3 cm; Wt 140.6 kg
[~2019-09-18 08:01] MED LIST changes: +PATANOL5 ML OPHTHALMIC; +PREDNISONE 20 M20 M1 PO
[2019-09-18 08:25] LABS: URINE BILIRUBIN NEGATIVE (Negative); URINE BLOOD TRACE (Negative); URINE CLARITY CLEAR; URINE COLOR YELLOW; URINE GLUCOSE-RANDOM* NEGATIVE (Negative); URINE KETONES NEGATIVE (Negative); URINE LEUKOCYTES-REFLEX NEGATIVE (Negative); URINE NITRITE-REFLEX NEGATIVE (Negative); URINE PROTEIN (DIPSTICK) TRACE (Negative); URINE SPECIFIC GRAVITY >= 1.030 (1.005-1.035); URINE UROBILINOGEN 0.2 E.U./dl (0.2-1.0)
[2019-09-18] MEDS ORDERED: METRONIDAZOLE500 M4 PO (09:19)
[2019-09-18 09:20] VITALS: BP 157/88
== END 2019-09-18 09:20 | disposition home or self-care (01) ==
LOC: ER 08:01
PROVIDERS: Student in an Organized Health Care Education/Training Program
DX: N76.0 Acute vaginitis (principal); B96.89 Other specified bacterial agents as the cause of diseases classified elsewhere; J45.909 Unspecified asthma, uncomplicated; K21.9 Gastro-esophageal reflux disease without esophagitis; Z88.1 Allergy status to other antibiotic agents; Z79.899 Other long term (current) drug therapy; Z90.49 Acquired absence of other specified parts of digestive tract

== ENCOUNTER 2020-01-11 11:01 | Emergency (ER) | payer OTHER ==
[~2020-01-11] VITALS: Ht 175.3 cm; Wt 136.1 kg
[~2020-01-11 11:01] MED LIST changes: +METRONIDAZOLE500 M4 PO
[2020-01-11] MEDS ORDERED: AUGMENTIN 875-1 EACH PO (14:23)
[2020-01-11 14:40] VITALS: BP 175/92
--- NOTE | 2020-01-11 15:22 | EKG ---
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: Nicolle : 1985 Requested By: Edgardo López Order Number: [id number] MD: Ruben Hernandez Measurements Intervals [place] Rate: 89 P: 62 [place]: 150 QRS: 4 QRSD: 111 T: 7 QT: 405 QTc: 493 Interpretive Statements Sinus rhythm Compared to ECG 08/19/2018 03:09:45 Atrial premature complex(es) no longer present Electronically Signed On 01-11-2020 15:22:16 IDENTITY ACCESS MANAGEMENT ARCHITECT by Ruben Hernandez [email or web address] <ELECTRONICALLY SIGNED> By: Ruben Hernandez MD, FACC 01/11/20 1522 1436 1436 Ruben Hernandez MD, [facility] /EPI
== END 2020-01-11 14:40 | disposition home or self-care (01) ==
LOC: ER 11:01
DX: R06.02 Shortness of breath (principal); J32.9 Chronic sinusitis, unspecified; J45.909 Unspecified asthma, uncomplicated; K21.9 Gastro-esophageal reflux disease without esophagitis; Z90.49 Acquired absence of other specified parts of digestive tract; Z79.899 Other long term (current) drug therapy; Z88.1 Allergy status to other antibiotic agents; Z91.048 Other nonmedicinal substance allergy status; Z20.828 Contact with and (suspected) exposure to other viral communicable diseases

== ENCOUNTER 2020-04-24 09:32 | Emergency (ER) | payer OTHER ==
[~2020-04-24] VITALS: Ht 170.2 cm; Wt 136.1 kg
[2020-04-24 10:36] LABS: ABSOLUTE NEUTROPHILS 6.4 thou/uL (1.4-8.2); BASOPHILS 0.9 % (0.0-2.0); EOSINOPHILS 5.9 % (0.0-3.0); HEMATOCRIT 37.8 % (37.0-47.0); HEMOGLOBIN 12.5 gm/dL (12.0-15.0); LYMPHOCYTES 18.8 % (24.0-44.0); MCH 30.5 pg (26.0-34.0); MCHC 32.9 g/dL (28.0-37.0); MCV 92.6 fL (80.0-100.0); MONOCYTES 6.9 % (1.0-8.0); PLATELET COUNT 250 thou/uL (150-400); POLYS 67.5 % (36.0-66.0); RBC 4.09 mil/uL (4.20-5.00); RDW 13.7 % (10.5-14.5); WBC 9.4 thou/uL (4.0-11.0)
[2020-04-24 10:43] LABS: CALCIUM 8.4 mg/dL (8.5-10.1); CREATININE 0.7 mg/dL (0.6-1.0); POTASSIUM 3.6 mmol/L (3.5-5.1)
[2020-04-24] MEDS ORDERED: PREDNISONE 10 M10 MG PO (12:01)
[2020-04-24 12:10] VITALS: BP 151/106
== END 2020-04-24 12:11 | disposition home or self-care (01) ==
LOC: ER 09:32
PROVIDERS: Emergency Medicine
DX: J45.901 Unspecified asthma with (acute) exacerbation (principal); K21.9 Gastro-esophageal reflux disease without esophagitis; Z79.899 Other long term (current) drug therapy; Z88.1 Allergy status to other antibiotic agents; Z91.048 Other nonmedicinal substance allergy status; Z20.822 Contact with and (suspected) exposure to COVID-19

== ENCOUNTER → 2020-06-20 | Emergency (ER) | payer OTHER ==
[~2020-06-20] MED LIST changes: +PREDNISONE 10 M10 MG PO
== END ==
LOC: ER 20:15
DX: R50.9 Fever, unspecified (principal); Z53.21 Procedure and treatment not carried out due to patient leaving prior to being seen by health care provider

== ENCOUNTER 2020-09-13 06:12 | Emergency (ER) | payer OTHER ==
[~2020-09-13] VITALS: Ht 170.2 cm; Wt 136.1 kg
[2020-09-13 07:38] LABS: ABSOLUTE NEUTROPHILS 8.5 thou/uL (1.4-8.2); BASOPHILS 0.8 % (0.0-2.0); EOSINOPHILS 0.2 % (0.0-3.0); HEMATOCRIT 36.7 % (37.0-47.0); HEMOGLOBIN 12.6 gm/dL (12.0-15.0); LYMPHOCYTES 18.1 % (24.0-44.0); MCH 31.8 pg (26.0-34.0); MCHC 34.3 g/dL (28.0-37.0); MCV 92.7 fL (80.0-100.0); MONOCYTES 5.3 % (1.0-8.0); PLATELET COUNT 298 thou/uL (150-400); POLYS 75.6 % (36.0-66.0); RBC 3.96 mil/uL (4.20-5.00); RDW 14.4 % (10.5-14.5); WBC 11.3 thou/uL (4.0-11.0)
[2020-09-13 07:58] LABS: ALBUMIN 3.4 g/dL (3.4-5.0); ANION GAP 9 mmol/L (7-16); BUN 26 mg/dL (7-18); CALCIUM 8.6 mg/dL (8.5-10.1); CHLORIDE 107 mmol/L (98-107); CO2 24 mmol/L (21-32); CREATININE 0.8 mg/dL (0.6-1.0); GLUCOSE 117 mg/dL (74-106); SGOT 28 U/L (15-37); SGPT 21 U/L (14-59); SODIUM 140 mmol/L (136-145); TOTAL BILIRUBIN 0.3 mg/dL (0.2-1.0); TOTAL PROTEIN 6.9 g/dL (6.4-8.2); TROPONIN-I <0.06 ng/mL (<0.06)
[2020-09-13 08:01] LABS: POTASSIUM 4.2 mmol/L (3.5-5.1)
[2020-09-13] MEDS ORDERED: ULTRAM 50MG TAB50 MG PO (08:50)
[2020-09-13 09:07] VITALS: BP 172/98
--- NOTE | 2020-09-13 11:37 | EKG ---
[place] [address] [facility] [place] [address] ELECTROCARDIOGRAM REPORT Name: JOSE VILCHIS Room #: [facility]#: [id number] Admission: 09/13/20 Attend Phys: Discharge: 09/13/20 Date of : 83 Report #: [id number] [facility] ED Test Date: 2020-09-13 Test Time: 07:11:57 Pat Name: JOSE VILCHIS Department: Room: Gender: F Radiation Safety Officer: RASHIDA : 1985 Requested By: Janak Rooney Order Number: [id number] MD: Ruben Hernandez Measurements Intervals [place] Rate: 73 P: 47 [place]: 150 QRS: 5 QRSD: 103 T: 0 QT: 425 QTc: 469 Interpretive Statements Sinus rhythm Atrial premature complex Probable left ventricular hypertrophy Borderline T abnormalities, inferior leads Compared to ECG 01/11/2020 14:36:56 Atrial premature complex(es) now present T-wave abnormality now present Electronically Signed On 09-13-2020 11:37:26 CDT by Ruben Hernandez [email or web address] <ELECTRONICALLY SIGNED> By: Ruben Hernandez MD, [facility] 09/13/20 1137 0 0 Ruben Hernandez MD, [facility] /EPI
== END 2020-09-13 09:07 | disposition home or self-care (01) ==
LOC: ER 06:12
PROVIDERS: Emergency Medicine
DX: H60.93 Unspecified otitis externa, bilateral (principal); Z20.822 Contact with and (suspected) exposure to COVID-19; J45.901 Unspecified asthma with (acute) exacerbation; K21.9 Gastro-esophageal reflux disease without esophagitis; E66.9 Obesity, unspecified; Z88.1 Allergy status to other antibiotic agents; Z91.048 Other nonmedicinal substance allergy status; Z90.49 Acquired absence of other specified parts of digestive tract

== ENCOUNTER 2020-11-27 19:36 | Emergency (ER) | payer OTHER ==
[~2020-11-27] VITALS: Ht 175.3 cm; Wt 131.5 kg
[~2020-11-27 19:36] MED LIST changes: +ULTRAM 50MG TAB50 MG PO
[2020-11-27] MEDS ORDERED: PREDNISONE 20 M20 MG PO (20:50)
[2020-11-27 20:59] VITALS: BP 162/112
== END 2020-11-27 20:55 | disposition home or self-care (01) ==
LOC: ER 19:36
DX: J45.901 Unspecified asthma with (acute) exacerbation (principal); K21.9 Gastro-esophageal reflux disease without esophagitis; Z88.1 Allergy status to other antibiotic agents; Z79.899 Other long term (current) drug therapy; Z90.49 Acquired absence of other specified parts of digestive tract

== ENCOUNTER 2021-02-07 12:12 | Emergency (ER) | payer OTHER ==
[~2021-02-07] VITALS: Ht 175.3 cm; Wt 134.3 kg
[2021-02-07 12:14] VITALS: BP 175/112
[2021-02-07 12:50] LABS: URINE BILIRUBIN NEGATIVE (Negative); URINE BLOOD TRACE (Negative); URINE CLARITY CLEAR; URINE COLOR YELLOW; URINE GLUCOSE-RANDOM* NEGATIVE (Negative); URINE KETONES NEGATIVE (Negative); URINE LEUKOCYTES-REFLEX NEGATIVE (Negative); URINE NITRITE-REFLEX NEGATIVE (Negative); URINE PROTEIN (DIPSTICK) NEGATIVE (Negative); URINE UROBILINOGEN 0.2 E.U./dl (0.2-1.0)
[2021-02-07] MEDS ORDERED: ADULT WAL-TUSS118 M1 PO (14:00)
[2021-02-07] MEDS ORDERED: MEDROLDOSEPACK PO (14:00)
== END 2021-02-07 14:13 | disposition home or self-care (01) ==
LOC: ER 12:12
PROVIDERS: Nurse Practitioner
DX: R05.9 Cough, unspecified (principal); Z20.822 Contact with and (suspected) exposure to COVID-19; R06.02 Shortness of breath; J45.909 Unspecified asthma, uncomplicated; K21.9 Gastro-esophageal reflux disease without esophagitis; Z88.1 Allergy status to other antibiotic agents; Z79.899 Other long term (current) drug therapy; Z90.49 Acquired absence of other specified parts of digestive tract

== ENCOUNTER 2021-02-12 19:35 | Emergency (ER) | payer OTHER ==
[~2021-02-12] VITALS: Ht 175.3 cm; Wt 131.5 kg
[~2021-02-12 19:35] MED LIST changes: +ADULT WAL-TUSS118 M1 PO
[2021-02-12 19:59] LABS: URINE BILIRUBIN NEGATIVE (Negative); URINE BLOOD TRACE (Negative); URINE CLARITY CLEAR; URINE COLOR YELLOW; URINE GLUCOSE-RANDOM* NEGATIVE (Negative); URINE KETONES NEGATIVE (Negative); URINE LEUKOCYTES-REFLEX NEGATIVE (Negative); URINE NITRITE-REFLEX NEGATIVE (Negative); URINE PROTEIN (DIPSTICK) NEGATIVE (Negative); URINE UROBILINOGEN 0.2 E.U./dl (0.2-1.0)
[2021-02-12] MEDS ORDERED: IPRAT-ALBUT 0.5-3 ML INH (20:03)
[2021-02-12] MEDS ORDERED: BUSPIRONE HCL7.5 MG PO (20:03)
[2021-02-12] MEDS ORDERED: ESCITALOPRAM OX20 MG PO (20:03)
[2021-02-13 00:10] VITALS: BP 177/131
== END 2021-02-13 00:12 | disposition home or self-care (01) ==
LOC: ER 19:35
PROVIDERS: Nurse Practitioner
DX: R10.2 Pelvic and perineal pain (principal); N89.8 Other specified noninflammatory disorders of vagina; J45.909 Unspecified asthma, uncomplicated; K21.9 Gastro-esophageal reflux disease without esophagitis; F41.9 Anxiety disorder, unspecified; Z90.49 Acquired absence of other specified parts of digestive tract; Z79.51 Long term (current) use of inhaled steroids; Z79.891 Long term (current) use of opiate analgesic; Z79.899 Other long term (current) drug therapy; Z88.1 Allergy status to other antibiotic agents; Z91.041 Radiographic dye allergy status

== ENCOUNTER 2021-02-17 21:23 | Inpatient (IN) | payer OTHER ==
[~2021-02-17] VITALS: Ht 175.3 cm; Wt 133.8 kg
--- NOTE | ~2021-02-17 | EMS ---
[facility] [address] [place] [address] EMS Patient Care Report Name: JOSE VILCHIS Room #: 437-P DIS IN M.R.#: [id number] Admission: 02/18/21 Attend Phys: Jason Hitchcock MD Discharge: 02/19/21 Date of : 83 Report #: [id number] THIS REPORT FOR: //name// Report Transmitted: 02/20/2021 14:27 EMS Care Summary [place], [place]/[facility] Incident [id number] @ 02/17/2021 20:42 Incident Location [address] [place] [address] Patient JOSE VILCHIS Female, 35 Years 1985 Patient Address [address] [place] [address] Patient History Asthma,Anxiety, Patient Allergies Cipro, Chief Complaint It's hard to breathe Disposition Transported No Lights/[place] Reason Breathing Problem Transported To [facility] Narrative Called for SOB. Upon arrival, pt was VICENTE x 3 sitting in her living room c/o SOB. She said she has been struggling all week and more over the past day or so. She said she has been to [facility] twice this week and was dx with asthma only, no Covid. Yesterday and continuing into today, she has developed a fever and some diarrhea. She requests transport to [facility] ER for further eval & tx. Pt moved to the EMS cot and loaded into the ambulance w/o incident. Vitals [facility] [address] [place] [address] EMS Patient Care Report Name: JOSE VILCHIS Room #: 437-P [facility] IN M.R.#: [id number] Admission: 02/18/21 Attend Phys: Jason Hitchcock MD Discharge: 02/19/21 Date of : 83 Report #: [id number] obtained. Pt has bilateral wheezing and SaO2 @ 88%. Duo-Neb started with O2. Attempt 20g IV SL x 2 w/o success, D-stick. Vitals repeated. En route: 4 lead applied. Pt stated she is doing a little better but not much. RR to the ER. Arrived, pt taken to ER #9 and moved to their bed w/o incident. Pt care & report to ER staff. Initial Vitals @21:11P: 43,SpO2: 100, @21:17P: 147,R: 40,BP: 76/48,Pain: 0/10,GCS: 15,SpO2: 100,Revised Trauma: 10,OH Suspected: false @21:11P: 125,R: 40,BP: 157/76,Pain: 0/10,GCS: 15,Glucose: 93,SpO2: 99,Revised Trauma: 11, @20:59P: 148,R: 44,BP: 156/114,Pain: 0/10,GCS: 15,CO: 4,SpO2: 88,Revised Trauma: 11, Assessments @20:49MENTAL:Place Oriented,Event Oriented,Person Oriented,Time Oriented,SKIN:Hot,HEENT:LUNG SOUNDS:General: Diarrhea,ABDOMEN:General: Diarrhea,PELVIS//GI:EXTREMITIES:Left Arm: No Abnormalities,Right Arm: No Abnormalities,Left Leg: No Abnormalities,Right Leg: No Abnormalities,PULSE:Radial: 2+ Normal,NEURO:No Abnormalities, Impression Asthma Procedures @20:49 ALS Assessment Response: UnchangedSucceeded @20:52 Stretcher Response: Unchanged @20:55 Oxygen FlowRate: 8 Device: Nebulizer Response: ImprovedSucceeded @21:17 3-Lead ECG Response: UnchangedSucceeded @21:03 IV Therapy - Saline Lock cc (20 ga) Site: Antecubital-Right Response: UnchangedFailed @20:55 Albuterol - 2.5 Milligrams (mg) - Nebulized Response: Improved @21:05 IV Therapy - Saline Lock cc (20 ga) Site: Antecubital-Right Response: UnchangedFailed @20:55 Atrovent - 0.5 Milligrams (mg) - Nebulized Response: Improved @20:55 Albuterol - 2.5 Milligrams (mg) - Nebulized Response: Improved Timeline 20:40,Call Received 20:40,Dispatch Notified 20:42,Dispatched 20:42,En Route 20:48,On Scene 20:49,At Patient [address] [address] EMS Patient Care Report Name: JOSE VICLHIS Room #: 437-P [facility].#: [id number] Admission: 02/18/21 Attend Phys: Jason Hitchcock MD Discharge: 02/19/21 Date of : 83 Report #: [id number] 20:49,ALS Assessment,Response: UnchangedSucceeded, 20:52,Stretcher,Response: Unchanged 20:55,Albuterol - 2.5 Milligrams (mg) - Nebulized,Response: Improved 20:55,Albuterol - 2.5 Milligrams (mg) - Nebulized,Response: Improved 20:55,Atrovent - 0.5 Milligrams (mg) - Nebulized,Response: Improved 20:55,Oxygen FlowRate: 8 Device: Nebulizer Response: ImprovedSucceeded, 20:59,BP: 156/114 M,PULSE: 148,RR: 44 R,SPO2: 88 Ox,ETCO2: ,BG: ,PAIN: 0,GCS: 15, 21:03,IV Therapy - Saline Lock cc 20 ga Site: Antecubital-Right,Response: UnchangedFailed, 21:05,IV Therapy - Saline Lock cc 20 ga Site: Antecubital-Right,Response: UnchangedFailed, 21:07,Depart Scene 21:11,BP: / M,PULSE: 43,RR: R,SPO2: 100 Ox,ETCO2: ,BG: ,PAIN: ,GCS: , 21:11,BP: 157/76 M,PULSE: 125,RR: 40 R,SPO2: 99 Ox,ETCO2: ,B,PAIN: 0,GCS: 15, 21:17,BP: 76/48 M,PULSE: 147,RR: 40 R,SPO2: 100 Ox,ETCO2: ,BG: ,PAIN: 0,GCS: 15, 21:17,3-Lead ECG,Response: UnchangedSucceeded, 21:18,At Destination 21:29,Call Closed Disclaimer v1.1 Copyright 2020 [employer] This EMS Care Summary contains data elements from the applicable legal record (which may be displayed differently). It is designed to provide pertinent information for the following purposes: continuity of care, clinical quality, and state data reporting. The complete legal record is available to ED staff and administrators of the receiving hospital in [employer]'s Patient Tracker. All data is provided "as is."
--- NOTE | ~2021-02-17 | EMS ---
[facility] [address] [place] [address] EMS Patient Care Report Name: JOSE VILCHIS Room #: 437-P ADM IN M.R.#: [id number] Admission: 02/18/21 Attend Phys: Jason Hitchcock MD Discharge: Date of : 83 Report #: [id number] THIS REPORT FOR: //name// Report Transmitted: 02/18/2021 19:42 EMS Care Summary [place], [place]/[facility] Incident [id number] @ 02/17/2021 20:42 Incident Location [address] [place] [address] Patient JOSE VILCHIS Female, 35 Years 1985 Patient Address [address] [place] [address] Patient History Asthma,Anxiety, Patient Allergies Cipro, Chief Complaint It's hard to breathe Disposition Transported No Lights/[place] Dispatch Reason Breathing Problem Transported To [facility] Narrative Called for SOB. Upon arrival, pt was VICENTE x 3 sitting in her living room c/o SOB. She said she has been struggling all week and more over the past day or so. She said she has been to [facility] twice this week and was dx with asthma only, no Covid. Yesterday and continuing into today, she has developed a fever and some diarrhea. She requests transport to [facility] ER for further eval & tx. Pt moved to the EMS cot and loaded into the ambulance w/o incident. [facility] [address] [place] [address] EMS Patient Care Report Name: JOSE VILCHIS Room #: 437-P ADM IN M.R.#: [id number] Admission: 02/18/21 Attend Phys: Jason Hitchcock MD Discharge: Date of : 83 Report #: [id number] obtained. Pt has bilateral wheezing and SaO2 @ 88%. Duo-Neb started with O2. Attempt 20g IV SL x 2 w/o success, D-stick. Vitals repeated. En route: 4 lead applied. Pt stated she is doing a little better but not much. RR to the ER. Arrived, pt taken to ER #9 and moved to their bed w/o incident. Pt care & report to ER staff. Initial Vitals @21:11P: 43,SpO2: 100, @21:17P: 147,R: 40,BP: 76/48,Pain: 0/10,GCS: 15,SpO2: 100,Revised Trauma: 10,AL Suspected: false @21:11P: 125,R: 40,BP: 157/76,Pain: 0/10,GCS: 15,Glucose: 93,SpO2: 99,Revised Trauma: 11, @20:59P: 148,R: 44,BP: 156/114,Pain: 0/10,GCS: 15,CO: 4,SpO2: 88,Revised Trauma: 11, Assessments @20:49MENTAL:Place Oriented,Event Oriented,Person Oriented,Time Oriented,SKIN:Hot,HEENT:LUNG SOUNDS:General: Diarrhea,ABDOMEN:General: Diarrhea,PELVIS//GI:EXTREMITIES:Left Arm: No Abnormalities,Right Arm: No Abnormalities,Left Leg: No Abnormalities,Right Leg: No Abnormalities,PULSE:Radial: 2+ Normal,NEURO:No Abnormalities, Impression Asthma Procedures @20:49 ALS Assessment Response: UnchangedSucceeded @20:52 Stretcher Response: Unchanged @20:55 Oxygen FlowRate: 8 Device: Nebulizer Response: ImprovedSucceeded @21:17 3-Lead ECG Response: UnchangedSucceeded @21:03 IV Therapy - Saline Lock cc (20 ga) Site: Antecubital-Right Response: UnchangedFailed @20:55 Albuterol - 2.5 Milligrams (mg) - Nebulized Response: Improved @21:05 IV Therapy - Saline Lock cc (20 ga) Site: Antecubital-Right Response: UnchangedFailed @20:55 Atrovent - 0.5 Milligrams (mg) - Nebulized Response: Improved @20:55 Albuterol - 2.5 Milligrams (mg) - Nebulized Response: Improved Timeline 20:40,Call Received 20:40,Dispatch Notified 20:42,Dispatched 20:42,En Route 20:48,On Scene 20:49,At Patient [address] [address] EMS Patient Care Report Name: JOSE VILCHIS Room #: 437-P [facility] IN M.R.#: [id number] Admission: 02/18/21 Attend Phys: Jason Hitchcock MD Discharge: Date of : 83 Report #: [id number] 20:49,ALS Assessment,Response: UnchangedSucceeded, 20:52,Stretcher,Response: Unchanged 20:55,Albuterol - 2.5 Milligrams (mg) - Nebulized,Response: Improved 20:55,Albuterol - 2.5 Milligrams (mg) - Nebulized,Response: Improved 20:55,Atrovent - 0.5 Milligrams (mg) - Nebulized,Response: Improved 20:55,Oxygen FlowRate: 8 Device: Nebulizer Response: ImprovedSucceeded, 20:59,BP: 156/114 M,PULSE: 148,RR: 44 R,SPO2: 88 Ox,ETCO2: ,BG: ,PAIN: 0,GCS: 15, 21:03,IV Therapy - Saline Lock cc 20 ga Site: Antecubital-Right,Response: UnchangedFailed, 21:05,IV Therapy - Saline Lock cc 20 ga Site: Antecubital-Right,Response: UnchangedFailed, 21:07,Depart Scene 21:11,BP: / M,PULSE: 43,RR: R,SPO2: 100 Ox,ETCO2: ,BG: ,PAIN: ,GCS: , 21:11,BP: 157/76 M,PULSE: 125,RR: 40 R,SPO2: 99 Ox,ETCO2: ,B,PAIN: 0,GCS: 15, 21:17,BP: 76/48 M,PULSE: 147,RR: 40 R,SPO2: 100 Ox,ETCO2: ,BG: ,PAIN: 0,GCS: 15, 21:17,3-Lead ECG,Response: UnchangedSucceeded, 21:18,At Destination 21:29,Call Closed Disclaimer v1.1 Copyright 2020 [employer] This EMS Care Summary contains data elements from the applicable legal record (which may be displayed differently). It is designed to provide pertinent information for the following purposes: continuity of care, clinical quality, and state data reporting. The complete legal record is available to ED staff and administrators of the receiving hospital in [employer]'s Patient Tracker. All data is provided "as is."
[2021-02-17 21:23] VITALS: BP 167/108
[~2021-02-17 21:23] MED LIST changes: +BUSPIRONE HCL7.5 MG PO; +ESCITALOPRAM OX20 MG PO; +IPRAT-ALBUT 0.5-3 ML INH
[2021-02-17 21:50] LABS: HEMATOCRIT 38.6 % (37.0-47.0); HEMOGLOBIN 12.9 gm/dL (12.0-15.0); MCH 30.9 pg (26.0-34.0); MCHC 33.4 g/dL (28.0-37.0); MCV 92.7 fL (80.0-100.0); PLATELET COUNT 219 thou/uL (150-400); RBC 4.16 mil/uL (4.20-5.00); RDW 13.6 % (10.5-14.5); WBC 14.1 thou/uL (4.0-11.0)
[2021-02-17 22:00] LABS: CALCIUM 8.4 mg/dL (8.5-10.1); POTASSIUM 3.1 mmol/L (3.5-5.1)
[2021-02-17 22:37] LABS: ABSOLUTE NEUTROPHILS 11.7 thou/uL (1.4-8.2); ATYPICAL LYMPHS 1 %; METAMYELOCYTES 1 %
[2021-02-18 01:15] LABS: URINE BILIRUBIN NEGATIVE (Negative); URINE BLOOD 1+ (Negative); URINE CLARITY CLEAR; URINE COLOR YELLOW; URINE GLUCOSE-RANDOM* NEGATIVE (Negative); URINE KETONES NEGATIVE (Negative); URINE LEUKOCYTES-REFLEX NEGATIVE (Negative); URINE NITRITE-REFLEX NEGATIVE (Negative); URINE PROTEIN (DIPSTICK) NEGATIVE (Negative); URINE UROBILINOGEN 0.2 E.U./dl (0.2-1.0)
[2021-02-18 01:34] LABS: BACTERIA-REFLEX None Seen /HPF (None Seen); CASTS None Seen /LPF (None Seen); CRYSTALS None Seen /LPF (None Seen); MUCUS None Seen strn/LPF (None Seen); SQUAMOUS 0-3 Few /LPF (0-3); URINE RBC 1-2 Rare /HPF (NONE SEEN); URINE WBC-REFLEX None Seen /HPF (0-5)
[2021-02-18] MEDS ORDERED: IBUPROFEN100 M1 PO (01:44)
--- NOTE | 2021-02-18 10:53 | EKG ---
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1985 Requested By: Jason Hitchcock Order Number: [id number] MD: Daniel Negrete Measurements Intervals [place] Rate: 142 P: 70 DC: 88 QRS: 19 QRSD: 97 T: 23 QT: 298 QTc: 458 Interpretive Statements Sinus tachycardia Multiform ventricular premature complexes Borderline T wave abnormalities Compared to ECG 09/13/2020 07:11:57 Ventricular premature complex(es) now present Sinus rhythm no longer present Atrial premature complex(es) no longer present T-wave abnormality still present Electronically Signed On 02-18-2021 10:53:33 [employer] TECHNICIAN by Daniel Negrete [email or web address] <ELECTRONICALLY SIGNED> By: Daniel Negrete MD 02/18/21 1053 32 32 Daniel Negrete MD /EPI
[2021-02-18 19:40] VITALS: BP 158/116
--- NOTE | 2021-02-18 19:45 | NUR ---
REPORT GIVEN TO [facility] BREANNE SILVIA. TRANSPORTED ON INPATIENT BED TO FLOOR.
[2021-02-18 21:09] VITALS: BP 183/104
[2021-02-19 04:05] VITALS: BP 170/93
[2021-02-19 05:33] LABS: HEMATOCRIT 36.7 % (37.0-47.0); HEMOGLOBIN 11.9 gm/dL (12.0-15.0); MCH 30.8 pg (26.0-34.0); MCHC 32.5 g/dL (28.0-37.0); MCV 94.7 fL (80.0-100.0); RBC 3.88 mil/uL (4.20-5.00); WBC 14.3 thou/uL (4.0-11.0)
[2021-02-19 05:51] LABS: CALCIUM 8.4 mg/dL (8.5-10.1); CREATININE 0.8 mg/dL (0.6-1.0)
--- NOTE | 2021-02-19 07:32 | NUR ---
ASSUMED CARE AT 1945, PT A & OX4, SELF AMBULATES, COMPLIANT TO TX, NO ADVERSE REACTION NOTED, HAS PERSISTENT COUGHING RESULTING CHEST PAIN, ON BREATHING TX EVERY 4 HRS, RUNNING ST ON REST AND WITH BREATHING TX, NO SKIN ISSUES, ONCOMING NURSE INFORMED, WILL FOLLOW UP WITH ADMITTING PHYSICIAN REGARDING THE PT ST. PT REMAINS ON MONITORING.
[2021-02-19 07:56] VITALS: BP 137/98
[2021-02-19] MEDS ORDERED: MEDROL4 M1 PO (12:00)
[2021-02-19] MEDS ORDERED: MUCINEX600 MG PO (12:00)
[2021-02-19] MEDS ORDERED: DORYX MPC120 MG PO (12:00)
[2021-02-19 12:14] VITALS: BP 137/98
--- NOTE | 2021-02-19 12:53 | NUR ---
ASSUMED CARE OF PT AT 0700 THIS MORNNING. PT IS A/OX4 WITH SOME UPPER WHEEZING. ASSESSMENTS NOTED ON CHART AND OTHERWISE UNREMARKABLE. PT IS UP AT [facility]ARY WITH NO FALL RISK PRECAUTIONS NEEDED. CALL LIGHT AND OTHER NEEDS ARE IN REACH. MEDS AND TX GIVEN NEEDED AND SCHEDULED. WILL MONITOR AND NOTE ANY CHANGES. PT IS BEING DISCHARGED BY DR. MATHEWS AND WILL BE GOING BACK HOME. PT SIGNED DISCHARGE PAPERS AND PACKET IS LEFT WITH PT. PT WAS TAKEN TO ER ENTRANCE BY MANAGER RISK TO POV.
[2021-02-19 12:59] VITALS: BP 137/98
== END 2021-02-19 13:09 | disposition home or self-care (01) | DRG 871 ==
LOC: ER 21:23 → EROBS 02-18 00:45 → 4S 02-18 19:40
PROVIDERS: Emergency Medicine; Nurse Practitioner Family; ADMIT Internal Medicine; ATTEND Internal Medicine
DX: A41.9 Sepsis, unspecified organism (principal); J96.01 Acute respiratory failure with hypoxia; J18.9 Pneumonia, unspecified organism; J45.901 Unspecified asthma with (acute) exacerbation; Z68.41 Body mass index [BMI] 40.0-44.9, adult; E87.6 Hypokalemia; K21.9 Gastro-esophageal reflux disease without esophagitis; F41.9 Anxiety disorder, unspecified; E66.9 Obesity, unspecified; F32.9 Major depressive disorder, single episode, unspecified; Z20.822 Contact with and (suspected) exposure to COVID-19; Z90.49 Acquired absence of other specified parts of digestive tract; Z88.1 Allergy status to other antibiotic agents; Z87.891 Personal history of nicotine dependence; Z91.041 Radiographic dye allergy status
CPT/HCPCS: 10100